=== PATIENT | female | born 1970 | race African-American/Black ===

== ENCOUNTER 2017-07-10 11:31 | Emergency (ER) | payer OTHER | END 2017-07-10 12:28 | disposition home or self-care (01) | LOC: D.ER 11:31 | DX: S29.012A Strain of muscle and tendon of back wall of thorax, initial encounter (principal); V43.62XA Car passenger injured in collision with other type car in traffic accident, initial encounter; Y93.89 Activity, other specified; Y92.410 Unspecified street and highway as the place of occurrence of the external cause; S16.1XXA Strain of muscle, fascia and tendon at neck level, initial encounter ==